=== PATIENT | female | born 1990 | race Caucasian/White ===

== ENCOUNTER 2018-04-04 16:36 | Emergency (ER) | payer MEDICAID, SELFPAY ==
[2018-04-04 17:11] VITALS: BP 110/70; PULSE 77; RESP 16; TEMP 36.6; O2SAT 98
--- NOTE | 2018-04-04 17:23 | DI.RPTCT_ITS ---
SYMPTOM/DIAGNOSIS: RIGHT RIBS HYPERESTHESIAS OVER 7TH RIB REGION. MIDLINE T SPINE CT CHEST: Noncontrast examination was performed. Lack of IV contrast does limit evaluation of the examination. Heart size is within normal limits. No significant pericardial effusion is seen. No significant mediastinal hilar or axillary adenopathy is seen on this noncontrast examination. The thoracic aorta is of normal caliber. No pleural effusion or pneumothorax is identified. The tracheal bronchial tree is unremarkable. No effusions are seen. There is a nonspecific 3 mm noncalcified pulmonary nodule in the superior aspect of the right middle lobe. No other pulmonary nodules are identified. No acute fractures or dislocations are seen. The nodule is unchanged compared to the CT scan of the chest from 03/24/17. There is an old L-1 compression fracture deformity. This is unchanged compared to prior examinations. No acute bone or joint abnormality is identified. IMPRESSION: No acute abnormality in the chest.
--- NOTE | 2018-04-04 17:23 | DI.RPTCT_ITS ---
SYMPTOM/DIAGNOSIS: RIGHT RIBS HYPERESTHESIAS OVER 7TH RIB REGION. MIDLINE T- SPINE CT THORACIC SPINE: CT scan of the thoracic spine was performed from reconstructions from the CT scan of the chest performed the same day. There is normal alignment of the thoracic spine. No acute fractures or subluxations are seen. There is an old L-1 compression fracture deformity. The paraspinal lines are intact. The bones are normally mineralized. IMPRESSION: No acute abnormality.
[2018-04-04] MEDS: Gabapentin 300 MG CAP PO (17:49)
[2018-04-04] MEDS: Lidocaine 5% Patch 1 PATCH TP (17:49)
--- NOTE | 2018-04-04 18:26 | DI.VRAD_ITS ---
EXAM: CT Chest Without Intravenous Contrast CLINICAL HISTORY: 27 years old, female; Pain; Chest wall pain; Patient HX: Rt ribs hyperesthesias over seventh rib region, midline tspine pain; Additional info: Tspine recons done seperately TECHNIQUE: Axial computed tomography images of the chest without intravenous contrast. Coronal and sagittal reformatted images were created and reviewed. COMPARISON: CT - CHEST FOR PULMONARY EMBOLUS 2018-03-13 17:14 FINDINGS: No focal pulmonary consolidation. No pleural effusion. Mediastinum is unremarkable. Old appearing mild anterior compression of the L1 vertebral body. No evidence of acute fracture. No definite focal disc protrusion or herniation. IMPRESSION: No specific etiology identified for the patient's symptoms. Dictated and Authenticated by: Robert Ames MD. Ordering:SULEIMAN BALLARD MD
--- NOTE | 2018-04-04 18:28 | DI.VRAD_ITS ---
EXAM: CT Thoracic Spine Without Intravenous Contrast CLINICAL HISTORY: 27 years old, female; Pain; Pain in thoracic spine; Patient HX: Right ribs hyperesthesias over 7th rib region, midline tspine pain over t7; Additional info: Per pt: Midline tspine pain radiating around right side up sternum TECHNIQUE: Axial computed tomography images of the thoracic spine without intravenous contrast. Coronal and sagittal reformatted images were created and reviewed. COMPARISON: CT - TSPINE AND L SPINE WO 2017-03-24 13:32 FINDINGS: Bony structures appear intact. No focal subluxation. Paraspinal soft tissues unremarkable. No definite focal disc protrusion or herniation. Old-appearing mild compression of the T1 vertebral body. No evidence of acute fracture. IMPRESSION: No specific etiology identified for the patient's symptoms. Dictated and Authenticated by: Robert Ames MD. Ordering:SULEIMAN BALLARD MD
--- NOTE | 2018-04-04 18:44 | ED.GENADUL ---
Disposition Clinical Impression: Rib pain on right side, Reflex sympathetic dystrophy Disposition: HOME Condition: Fair Instructions: Complex Regional Pain Syndrome (GEN) Additional Instructions: Please apply the medication as directed. Please follow-up with your primary care provider as soon as possible for reassessment, physical therapy, and potential pain management. If you notice any worsening of your symptoms, or any new symptoms such as vomiting, diarrhea, fever, chills, shortness of breath, chest pain, numbness, weakness, or fainting , please return immediately to the emergency department for reevaluation. Please follow up with your primary care provider as soon as possible for reassessment and reevaluation. As always, it was a pleasure participating in your medical care today. Prescriptions: Acetaminophen [Tylenol Extra Strength] 1,000 mg PO Q6H 5 Days #60 tab Capsaicin 0.075% [Zostrix HP 0.075% Cream] 60 gm TP TID #1 tube DiphenhydrAMINE [Benadryl] 50 mg PO PRN PRN #15 cap PRN Reason: Gabapentin 300 mg PO TID #90 capsule HYDROcodone 10 mg/APAP 325 mg [[place]field 10/325] 1 tab PO Q6H #10 tab Ibuprofen [Motrin Ib] 600 mg PO Q6H 5 Days #60 tablet Referrals: Griselda Campos DO [Primary Care Provider] - Medical Decision Making - Medical Decision Making This is a 27-year-old female who presents with left rib pain for the last week after being kneed in the left posterior ribs by her child. Chest x-ray was performed a week ago which was negative. The patient presents today with severe pain which she describes as burning like in sensation. No evidence of shingles, rash or abnormality on her skin. No signs of trauma there. Because of the patient's notable pain we did get a CT scan to evaluate for any subtle rib fractures, or spinal pathology. CT scans as reported by virtual radiology does show evidence of an old appearing mild compression fracture of the T1 vertebral body as well as an old mild anterior compression of the L1 vertebral body. Neither of which are located near her pain. Her pain on exam is concerning for reflex sympathetic dystrophy with her hyperesthesias, and burning sensation. With no evidence of shingles or other signs of rash or abnormality I feel that RSD is certainly a high likelihood. Patient was given a Lidoderm patch which gave no improvement of her symptoms. She was given oral gabapentin but obviously this is long-acting will not immediately resolve her symptoms. I had a long discussion with her regarding follow-up, the need for physical therapy, and potential pain clinic management as referred to by her PCP. We will prescribe caspacin cream, gabapentin. Patient did request a sleeping aid and I did recommend 50 mg of Benadryl nightly. Patient requested something additional for the pain, had a long discussion with her regarding the risks and benefits of opiates. Patient does appear to be in notable pain, and these hyperesthesias are concerning for RSD. After a long discussion of the risks of narcotics, as through shared decision making process we did agree for a short dose of narcotics, only to be used on a as needed basis for severe pain to be able to sleep. I discussed with her the hospital policy of no prolonged narcotic prescriptions the patient understands. Discussed the importance of close follow-up, and red flags which to return the patient understands. I have extensively reviewed the treatment plan and discharge instructions with the patient. I have addressed all patient concerns at this time. The patient was made aware of what symptoms to monitor for that would warrant a return to the emergency department. Discussed the plan with the patient, they demonstrate verbal understanding and agreement with our assessment and plan at this time. History of Present Illness - General Chief complaint: Nk/Back Pain Stated complaint: RIB PAIN Time Seen by Provider: 04/04/18 17:10 - History of Present Illness Initial comments: This is a 27-year-old female with a past medical history of a thoracic and lumbar spinal fracture after jumping off a roof in the distant past, who presents today for evaluation of right-sided back and rib pain. Patient was here within the past week for the same symptom. Patient states at that time that her child dropped with their knees onto the patient's back in the posterior rib region. She was seen and assessed here, had negative x-ray, and was discharged home with Tylenol, Motrin, and methocarbamol. Patient states that none of these medications have helped, and that her pain has become worse. She describes the pain as a burning searing sensation traveling from her back rib in the region of the sixth rib, traveling around her chest under her breast into the sternum. There is no exertional component. It is made worse by touch, pressure, and even the feeling of her clothes rubbing against it. She has not been able to sleep well because of this. She denies any relieving factors. She denies any cough, shortness of breath, hemoptysis. Denies PE risk factors such as recent long car rides, immobilization, recent surgery, prior history of DVT or PE, family history of PE or DVT, morbid obesity, exogenous estrogen and smoking, hemoptysis, history of cancer. She denies any focal upper or lower back pain. Past medical history is significant for asthma, and tubal ligation. She denies any current IV or illicit drug use. She denies any pertinent family history. She has no other complaints at this time. - Related Data Propranolol HCl 10 mg PO BID, PRN Anxiety/Mendez #30 tab-cap 11/11/17 Albuterol Sulfate [Proair Hfa] 1 puff IH Q6H PRN #1 inhaler 12/31/17 Ibuprofen 600 mg PO TID #30 tab-cap 12/31/17 Albuterol Sulfate [Proair Hfa] 1 puff IH Q4H PRN #1 inhaler 03/12/18 Bupropion HCl [Wellbutrin Sr] 100 mg PO BID #60 tab-cap 03/12/18 Fluticasone Propionate [Flovent Diskus] 100 mcg IH BID 30 Days #1 disk 03/12/18 Methocarbamol 750 mg PO Q6H PRN PRN #14 tablet 03/30/18 Hydrocodone/Acetaminophen [Vicodin 5-300 mg Tablet] 1 tab-cap PO Q6H PRN #15 tab-cap 04/02/18 Oxycodone HCl/Acetaminophen [Percocet 5-325 mg Tablet] 1 each PO q6 hours prn pain #15 tablet 04/02/18 Acetaminophen [Tylenol Extra Strength] 1,000 mg PO Q6H 5 Days #60 tab 04/04/18 Capsaicin 0.075% [Zostrix HP 0.075% Cream] 60 gm TP TID #1 tube 04/04/18 DiphenhydrAMINE [Benadryl] 50 mg PO PRN PRN #15 cap 04/04/18 Gabapentin 300 mg PO TID #90 capsule 04/04/18 HYDROcodone 10 mg/APAP 325 mg [[place] 10/325] 1 tab PO Q6H #10 tab 04/04/18 Ibuprofen [Motrin Ib] 600 mg PO Q6H 5 Days #60 tablet 04/04/18 Allergies Allergy/AdvReac Type Severity Reaction Status Date / Time No Known Drug Allergies Allergy Unverified 04/04/18 17:15 Review of Systems Other: 10 point review of systems was performed, pertinent positives and negatives are noted in the history of present illness. Past Medical History - Past Medical History Medical history: asthma, GERD Epigastric pain, kidney stones Surgical history: bilateral tubal ligation - Social History Alcohol use: none Drug use: none General Exam - Other Other exam information: 1.Const: Well-nourished, Well-developed, appearing stated age 2.Eyes: PERRL, no conjunctival injection, and symmetrical lids. 3.ENT: Atraumatic external nose and ears. Moist MM. Neck: Symmetric, trachea midline, No thyromegaly. 4.CVS: +S1/S2, No murmurs or gallops. Peripheral pulses 2+ and equal in all extremities. Brisk capillary refill in all extremities. 5.RESP: Unlabored respiratory effort. Clear to auscultation bilaterally. No wheezes rales or rhonchi 6.GI: Soft, Nontender/Nondistended, No hepatosplenomegaly. No guarding or rebound. 7.MSK: Normocephalic/Atraumatic, Extremities w/o deformity or ttp No cyanosis or clubbing, Normal movement of all extremities. No significant midline cervical or lumbar spine tenderness. She has minimal pinpoint midline tenderness over T6, and right paraspinal tenderness. No step-off. No other midline tenderness. Palpation of the skin around this area demonstrates no deformity, bruising, or signs of trauma. The patient has hyperesthesias in these areas, and is extremely tender even to the lightest of touch. Touching with a gloved finger with even the smallest amount of pressure elicits severe pain in response. 8.Skin: Warm, Dry. No rashes or lesions. 9.Neuro: instructor decorating II-XII grossly intact. Sensation grossly intact, no focal neurologic deficits. 10.Psych: (AAO) x3. Appropriate mood and affect Course Vital Signs - 24 hr 04/04/18 17:11 Temperature 36.6 C Pulse 77 Respiratory 16 Rate Blood Pressure 110/70 Pulse Oximetry 98
[2018-04-04 19:17] VITALS: BP 99/59; PULSE 65; RESP 20; O2SAT 100
== END 2018-04-04 19:18 | disposition home or self-care (01) ==
PROVIDERS: Emergency Provider Student in an Organized Health Care Education/Training Program; PCP Student in an Organized Health Care Education/Training Program
DX: R07.81 Pleurodynia (principal); G90.59 Complex regional pain syndrome I of other specified site; W50.0XXA Accidental hit or strike by another person, initial encounter; R20.8 Other disturbances of skin sensation
CPT/HCPCS: 71250; 99284

== ENCOUNTER → 2018-04-08 18:33 | Outpatient (REF) | payer MEDICAID, SELFPAY ==
[2018-04-13 13:51] LABS: Codeine Negative ng/mL (Cutoff: 25); Dihydrocodeine Negative ng/mL (Cutoff: 25); Hydrocodone Negative ng/mL (Cutoff: 25); Hydromorphone Negative ng/mL (Cutoff: 25); Morphine Negative ng/mL (Cutoff: 25); Naloxone Negative ng/mL (Cutoff: 25); Norhydrocodone Negative ng/mL (Cutoff: 25); Noroxycodone 28 ng/mL (Cutoff: 25); Opiates Interpretation Positive.
== END ==
LOC: LBN 18:33
PROVIDERS: PCP Student in an Organized Health Care Education/Training Program; Visit Provider Nurse Practitioner Family
DX: R82.5 Elevated urine levels of drugs, medicaments and biological substances (principal)
CPT/HCPCS: 80361

== ENCOUNTER → 2018-04-15 07:59 | Outpatient (CLI) | payer MEDICAID, SELFPAY ==
[2018-04-16 11:30] LABS: Lyme Ab w Rflx to Lyme Confirm Positive
[2018-04-17 01:12] LABS: Anaplasma phagocytophilum Negative (Negative); B. miyamotoi PCR Negative (Negative); Babesia divergens/MO-1 Negative (Negative); Babesia duncani Negative (Negative); Babesia microti Negative (Negative); Ehrlichia chaffeensis Negative (Negative); Ehrlichia ewingii/canis Negative (Negative); Ehrlichia muris eauclairensis Negative (Negative)
[2018-04-20 14:49] LABS: IgG Band(s) SEE COMMENTS kDa; IgG Western Blot Positive (Negative); IgM Western Blot Positive (Negative); Western Blot Interpretation SEE COMMENTS
== END ==
PROVIDERS: PCP Student in an Organized Health Care Education/Training Program; Visit Provider Student in an Organized Health Care Education/Training Program
DX: W57.XXXS Bitten or stung by nonvenomous insect and other nonvenomous arthropods, sequela (principal); T14.8XXA Other injury of unspecified body region, initial encounter
CPT/HCPCS: 36415; 86617; 86618; 87798

== ENCOUNTER 2018-05-13 09:19 | Emergency (ER) | payer MEDICAID, SELFPAY ==
[2018-05-13 09:29] VITALS: BP 104/59; PULSE 92; RESP 14; TEMP 37.3; O2SAT 98
--- NOTE | 2018-05-13 10:50 | DI.US_ITS ---
SYMPTOMS/DIAGNOSIS: RT ARM AXILLARY SWELLING SOFT TISSUE ULTRASOUND: Sonographic evaluation of the right axilla was performed. There is a 5 x 2.2 x 3.9 cm complex fluid collection in the subcutaneous tissues of the right axilla corresponding to the palpable abnormality. Posterior acoustic enhancement is seen. No internal blood flow is present. IMPRESSION: 5 cm complex fluid collection in the right axilla. Differential considerations include abscess, resolving hematoma or seroma. Necrotic lymph node or other mass can not be excluded. Follow up as clinically appropriate. This may include an aspiration. The findings were discussed with the emergency department on the date of the examination.
--- NOTE | 2018-05-13 10:52 | W.ED.GENAD ---
Discharge Plan Disposition Patient Disposition: HOME Condition: Stable Discharge Details Chief Complaint: Cellulitis Clinical Impression: Axillary hidradenitis suppurativa Primary Care Provider: Griselda Campos ED Provider: Duc Harmon Home Meds and New Rx's Prescriptions: New acetaminophen-codeine [Tylenol-Codeine #3] 300-30 mg tablet 1 tab PO Q6H PRN (Reason: pain) Qty: 4 RF: 0 Continue propranolol 10 MG tablet 10 mg PO BID, PRN Anxiety/Mendez Qty: 30 RF: 1 albuterol sulfate [ProAir HFA] 8.5 GM HFA aerosol inhaler 1 puff Inhalation Q4H PRN Qty: 1 RF: 1 fluticasone [Flovent Diskus] 100 MCG blister with device 100 mcg Inhalation BID 30 Days Qty: 1 RF: 3 pregabalin [Lyrica] 75 MG capsule 75 mg PO BID Qty: 60 RF: 5 doxycycline monohydrate 100 MG capsule 100 mg PO BID Qty: 42 RF: 0 bupropion HCl [Wellbutrin SR] 100 mg tablet extended release 12 hr 100 mg PO BID Qty: 60 RF: 3 acetaminophen [Mapap Extra Strength] 500 MG tablet 1,000 mg PO Q6H 5 Days Qty: 60 RF: 0 Discharge Instructions Instructions: Arm Pain (ED) Additional Instructions: Return immediately to the emergency department if you have any significant worsening of her symptoms, fever, or further concerns. Otherwise it is important that you follow-up with general surgery on Thursday for reassessment and scheduled treatment. Continue to take your prescribed medications by your primary care provider Referrals: Zeke Grimaldo DO [ [facility] STAFF PHYSICIAN] - 05/17/18 11:30 am Discharge Data Discharge Date/Time-TO BE ENTERED AT DEPARTURE: 05/13/18 14:09 Medical Decision Making MDM Narrative Medical decision making narrative: Patient presenting to the emergency department for chief complaint of right axillary swelling for 1 month. Patient just saw her primary care provider yesterday who was concerned for hidradenitis suppurativa that may be affecting the axillary nerve due to burning pain and discomfort radiating down arm and difficulty moving arm that seems mostly due to pain and discomfort. Physical exam reveals approximately 3 cm diameter swollen fluctuant area underneath the right axilla with only very mild erythema, no warmth, no induration. I agree with primary care is concerned and patient given [place] and ordered ultrasound imaging. I did speak with primary care provider who agrees with this plan of care and recommendation for general surgery f/u Review of ultrasound imaging shows a complex fluid collection underneath the right axilla. Did speak with Dr. Camacho in regards to concern of hidradenitis and she recommended that patient use NSAIDs and follow-up with the office on Thursday to see Dr. Santana as she does not typically operate on these. Patient did have Voltaren gel called in by her primary care provider and I did discuss with her limited supply of narcotics due to significant pain and just use for breakthrough pain or to aid in sleep. Patient to return for new or worsening symptoms or if she runs a measured fever which she was encouraged to check her temperature or return for any significant concern. After discussion of diagnosis and plan of care with patient she agrees and states no further needs questions or concern Medical Records Medical records reviewed: Yes I reviewed the patient's medical records. HPI - General Adult General Mode of arrival: ambulatory. Date/Time Provider Initiated Documentation: 05/13/18 09:45. Limitations to Documentation: no limitations. Information obtained by: patient, RN notes reviewed and old records reviewed. History of Present Illness 27 year old F presents to the emergency department with the chief complaint of Left armpit pain and swelling, described as moderate, with intensity rated at 8. Quality is described as burning and sharp, and is localized to the upper extremity. Patient distal. Patient started experiencing this month(s) (1 month) and it has been constant. No relieving factors improve symptom(s), No exacerbating factors reported . Patient did receive the following treatments prior to arrival, none Related Data Previous Rx's Medication Instructions Recorded propranolol 10 mg PO BID, PRN Anxiety/Mendez #30 11/11/17 tab-cap albuterol sulfate [ProAir HFA] 1 puff INHALATION Q4H PRN #1 03/12/18 inhaler fluticasone [Flovent Diskus] 100 mcg INHALATION BID 30 Days #1 03/12/18 disk acetaminophen [Mapap Extra 1,000 mg PO Q6H 5 Days #60 tab 04/04/18 Strength] pregabalin [Lyrica] 75 mg PO BID #60 tab-cap 04/14/18 doxycycline monohydrate 100 mg PO BID #42 tab-cap 04/21/18 bupropion HCl SR 100 mg tablet,12 100 mg PO BID #60 tab-cap 05/10/18 hr sustained-release acetaminophen-codeine 1 tab PO Q6H PRN #4 tab 05/13/18 [Tylenol-Codeine #3] Allergies Allergy/AdvReac Type Severity Reaction Status Date / Time No Known Drug Allergies Allergy Unverified 05/13/18 10:25 General Stated Complaint: Cellulitis VIADL: 3 Review of Systems Constitutional Denies body ache(s), Reports chills, Reports fever(s), Denies lethargy, Denies night sweats and Denies weight loss Cardiovascular Denies chest pain and Denies dyspnea Respiratory Denies cough and Denies dyspnea Gastrointestinal Denies abdominal pain, Denies nausea and Denies vomiting Musculoskeletal Reports myalgias (left arm) Integumentary/Breasts Reports as per HPI and Denies rash Neurologic Denies confusion and Denies sensory deficit Psychiatric Denies confusion PFSH Family History Other Diabetes Medical History Anxiety Bacterial vaginosis Contraception Depression Heartburn Other social stressor Social History Smoking/Tobacco Use Status: Current every day Surgical History Ligation of fallopian tube (10/08/16) Tympanostomy Tubes (09/27/02) fx L1 vertebra Exam Const General: cooperative, no acute distress and not ill appearing Orientation: alert, awake and oriented x3 HENMN Mouth: moist mucous membranes Neck Neck: normal visual inspection and no lymphadenopathy Resp Effort & Inspection: normal respiratory effort, able to speak in complete sentences and no respiratory distress Cardio Rate: regular rate Rhythm: regular rhythm Skin General skin exam: no rashes or lesions noted Neuro General: alert, awake, oriented x3, moves all extremities and no focal motor deficits Sensory Exam: no sensory deficits noted Extrem Right upper extremity: normal capillary refill, shoulder/upper arm Details: axillary nerve sensory function normal and other (Patient has non-erythematous swelling to right axilla. There is significant tenderness with diameter of swelling approximately 3 cm.); no penetrating wound and no unusual warmth and hand Details: normal to inspection, normal capillary refill, neuromotor exam normal and neurosensory exam normal Course Vital Signs Temperature 37.3 C 05/13/18 09:29 Pulse 92 H 05/13/18 09:29 Respiratory Rate 14 05/13/18 09:29 Blood Pressure 104/59 L 05/13/18 09:29 Pulse Oximetry 98 05/13/18 09:29 Temperature 37.3 C 05/13/18 09:29 Pulse 92 H 05/13/18 09:29 Respiratory Rate 14 05/13/18 09:29 Blood Pressure 104/59 L 05/13/18 09:29 Pulse Oximetry 98 05/13/18 09:29
--- NOTE | 2018-05-13 10:58 | ED.GENADUL_ITS ---
Discharge Plan Disposition Patient Disposition: HOME Condition: Stable Discharge Details Chief Complaint: Cellulitis Clinical Impression: Axillary hidradenitis suppurativa Primary Care Provider: Griselda Campos ED Provider: Duc Harmon Home Meds and New Rx's Prescriptions: New acetaminophen-codeine [Tylenol-Codeine #3] 300-30 mg tablet 1 tab PO Q6H PRN (Reason: pain) Qty: 4 RF: 0 Continue propranolol 10 MG tablet 10 mg PO BID, PRN Anxiety/Mendez Qty: 30 RF: 1 albuterol sulfate [ProAir HFA] 8.5 GM HFA aerosol inhaler 1 puff Inhalation Q4H PRN Qty: 1 RF: 1 fluticasone [Flovent Diskus] 100 MCG blister with device 100 mcg Inhalation BID 30 Days Qty: 1 RF: 3 pregabalin [Lyrica] 75 MG capsule 75 mg PO BID Qty: 60 RF: 5 doxycycline monohydrate 100 MG capsule 100 mg PO BID Qty: 42 RF: 0 bupropion HCl [Wellbutrin SR] 100 mg tablet extended release 12 hr 100 mg PO BID Qty: 60 RF: 3 acetaminophen [Mapap Extra Strength] 500 MG tablet 1,000 mg PO Q6H 5 Days Qty: 60 RF: 0 Discharge Instructions Instructions: Arm Pain (ED) Additional Instructions: Return immediately to the emergency department if you have any significant worsening of her symptoms, fever, or further concerns. Otherwise it is important that you follow-up with general surgery on Thursday for reassessment and scheduled treatment. Continue to take your prescribed medications by your primary care provider Referrals: Zeke Grimaldo DO [ [facility] STAFF PHYSICIAN] - 05/17/18 11:30 am Discharge Data Discharge Date/Time-TO BE ENTERED AT DEPARTURE: 05/13/18 14:09 Medical Decision Making MDM Narrative Medical decision making narrative: Patient presenting to the emergency department for chief complaint of right axillary swelling for 1 month. Patient just saw her primary care provider yesterday who was concerned for hidradenitis suppurativa that may be affecting the axillary nerve due to burning pain and discomfort radiating down arm and difficulty moving arm that seems mostly due to pain and discomfort. Physical exam reveals approximately 3 cm diameter swollen fluctuant area underneath the right axilla with only very mild erythema , no warmth, no induration. I agree with primary care is concerned and patient given Rochert and ordered ultrasound imaging. I did speak with primary care provider who agrees with this plan of care and recommendation for general surgery f/u Review of ultrasound imaging shows a complex fluid collection underneath the right axilla. Did speak with Dr. Camacho in regards to concern of hidradenitis and she recommended that patient use NSAIDs and follow-up with the office on Thursday to see Dr. Santana as she does not typically operate on these. Patient did have Voltaren gel called in by her primary care provider and I did discuss with her limited supply of narcotics due to significant pain and just use for breakthrough pain or to aid in sleep. Patient to return for new or worsening symptoms or if she runs a measured fever which she was encouraged to check her temperature or return for any significant concern. After discussion of diagnosis and plan of care with patient she agrees and states no further needs questions or concern Medical Records Medical records reviewed: Yes I reviewed the patient's medical records. HPI - General Adult General Mode of arrival: ambulatory . Date/Time Provider Initiated Documentation: 05/13/18 09:45 . Limitations to Documentation: no limitations . Information obtained by: patient, RN notes reviewed and old records reviewed . History of Present Illness 27 year old F presents to the emergency department with the chief complaint of Left armpit pain and swelling, described as moderate, with intensity rated at 8. Quality is described as burning and sharp, and is localized to the upper extremity. Patient distal. Patient started experiencing this month(s) (1 month) and it has been constant. No relieving factors improve symptom(s) , No exacerbating factors reported . Patient did receive the following treatments prior to arrival, none Related Data Previous Rx's Medication Instructions Recorded propranolol 10 mg PO BID, PRN Anxiety/Mendez #30 11/11/17 tab-cap albuterol sulfate [ProAir HFA] 1 puff INHALATION Q4H PRN #1 03/12/18 inhaler fluticasone [Flovent Diskus] 100 mcg INHALATION BID 30 Days #1 03/12/18 disk acetaminophen [Mapap Extra 1,000 mg PO Q6H 5 Days #60 tab 04/04/18 Strength] pregabalin [Lyrica] 75 mg PO BID #60 tab-cap 04/14/18 doxycycline monohydrate 100 mg PO BID #42 tab-cap 04/21/18 bupropion HCl SR 100 mg tablet,12 100 mg PO BID #60 tab-cap 05/10/18 hr sustained-release acetaminophen-codeine 1 tab PO Q6H PRN #4 tab 05/13/18 [Tylenol-Codeine #3] Allergies Allergy/AdvReac Type Severity Reaction Status Date / Time No Known Drug Allergies Allergy Unverified 05/13/18 10:25 General Stated Complaint: Cellulitis VIDAL: 3 Review of Systems Constitutional Denies body ache(s), Reports chills, Reports fever(s), Denies lethargy, Denies night sweats and Denies weight loss Cardiovascular Denies chest pain and Denies dyspnea Respiratory Denies cough and Denies dyspnea Gastrointestinal Denies abdominal pain, Denies nausea and Denies vomiting Musculoskeletal Reports myalgias (left arm) Integumentary/Breasts Reports as per HPI and Denies rash Neurologic Denies confusion and Denies sensory deficit Psychiatric Denies confusion PFSH Family History Other Diabetes Medical History Anxiety Bacterial vaginosis Contraception Depression Heartburn Other social stressor Social History Smoking/Tobacco Use Status: Current every day Surgical History Ligation of fallopian tube (10/08/16) Tympanostomy Tubes (09/27/02) fx L1 vertebra Exam Const General: cooperative, no acute distress and not ill appearing Orientation: alert, awake and oriented x3 HENPR Mouth: moist mucous membranes Neck Neck: normal visual inspection and no lymphadenopathy Resp Effort & Inspection: normal respiratory effort, able to speak in complete sentences and no respiratory distress Cardio Rate: regular rate Rhythm: regular rhythm Skin General skin exam: no rashes or lesions noted Neuro General: alert, awake, oriented x3, moves all extremities and no focal motor deficits Sensory Exam: no sensory deficits noted Extrem Right upper extremity: normal capillary refill, shoulder/upper arm Details: axillary nerve sensory function normal and other (Patient has non-erythematous swelling to right axilla. There is significant tenderness with diameter of swelling approximately 3 cm.); no penetrating wound and no unusual warmth and hand Details: normal to inspection, normal capillary refill, neuromotor exam normal and neurosensory exam normal Course Vital Signs Temperature 37.3 C 05/13/18 09:29 Pulse 92 H 05/13/18 09:29 Respiratory Rate 14 05/13/18 09:29 Blood Pressure 104/59 L 05/13/18 09:29 Pulse Oximetry 98 05/13/18 09:29 Temperature 37.3 C 05/13/18 09:29 Pulse 92 H 05/13/18 09:29 Respiratory Rate 14 05/13/18 09:29 Blood Pressure 104/59 L 05/13/18 09:29 Pulse Oximetry 98 05/13/18 09:29
[2018-05-13] MEDS: HYDROcodone 5/Acetaminophen 325 TAB PO (11:00)
== END 2018-05-13 14:09 | disposition home or self-care (01) ==
PROVIDERS: Emergency Provider Nurse Practitioner Family; PCP Student in an Organized Health Care Education/Training Program
DX: L73.2 Hidradenitis suppurativa (principal)
CPT/HCPCS: 76881; 99284

== ENCOUNTER 2018-05-19 10:13 | Day surgery (SDC) | payer MEDICAID, SELFPAY ==
[2018-05-19 10:27] VITALS: BP 104/61; PULSE 95; RESP 18; TEMP 35.8; O2SAT 96
[2018-05-19] MEDS: Lactated Ringers 1,000 ML 30 ML IV (10:56)
[2018-05-19] MEDS: Lidocaine 1% Pres-Free 5 ML VIAL 10 ML (12:48)
--- NOTE | 2018-05-19 13:12 | PDOC.DSDIS_ITS ---
Discharge Plan Disposition Patient Disposition: HOME Condition: Good Discharge Details Reason For Visit: ABSCESS Attending Provider: Zeke Grimaldo Primary Care Provider: Griselda Campos Home Meds and New Rx's Prescriptions: Continue propranolol 10 MG tablet 10 mg PO BID, PRN Anxiety/Mendez Qty: 30 RF: 1 albuterol sulfate [ProAir HFA] 8.5 GM HFA aerosol inhaler 1 puff Inhalation Q4H PRN Qty: 1 RF: 1 fluticasone [Flovent Diskus] 100 MCG blister with device 100 mcg Inhalation BID 30 Days Qty: 1 RF: 3 pregabalin [Lyrica] 75 MG capsule 75 mg PO BID Qty: 60 RF: 5 doxycycline monohydrate 100 MG capsule 100 mg PO BID Qty: 42 RF: 0 bupropion HCl [Wellbutrin SR] 100 mg tablet extended release 12 hr 100 mg PO BID Qty: 60 RF: 3 acetaminophen [Mapap Extra Strength] 500 MG tablet 1,000 mg PO Q6H PRNRF: 0 acetaminophen-codeine [Tylenol-Codeine #3] 300-30 mg tablet 1 tab PO Q6H PRN (Reason: pain) Qty: 4 RF: 0 Discharge Instructions Instructions: Acute Wound Care (DC), Wound Infection (DC) Additional Instructions: Remove guaze packing in 24 hours, keep wound covered, expect it to drain for up to a week. Avoid lifting arm above shoulder. Referrals: Zeke Grimaldo DO [ [facility] STAFF PHYSICIAN] - 05/26/18 9:45 am (Follow up after drainage of right axillary abscess) Activity:: Activity as Tolerated Remove Dressings/Wound Care:: 24 hours Shower/Bathe:: 48 hours and Cover Diet:: regular diet Discharge Orders Discharge Orders: Discharge Order (Routine); Ordered 05/19/18 Ordered By: Zeke Grimaldo DS: Diagnosis Discharge Diagnosis (1) Axillary abscess: Status: Acute Asessment and Plan: Axillary abscess incised and drained under monitored anesthesia care. Culture sent for identification and sensitivity.
--- NOTE | 2018-05-19 13:32 | W.PM.OP ---
Date of service: 05/19/18 Time of Service: 13:32 Operative Note DATE OF PROCEDURE: 05/19/18 PRE-OP DIAGNOSIS: Axillary abscess POST-OP DIAGNOSIS: same PROCEDURE: Incision and drainage of right axillary abscess SURGEON: Zeke Grimaldo FLORICULTURE PROFESSOR: Halina Neff ANESTHESIA: MAC (Anesthestist: Moy Valentin, LEO ASA 2 Mallampati II) and local (1% lidocaine, and 0.5% marcaine with epinephrine) ESTIMATED BLOOD LOSS: 0.5 PATHOLOGY: none sent COMPLICATIONS: None Patient was transported to: same day Patient's condition: stable Indications: 27 y/o female with abscess in right axilla. An ultrasound of the right axilla clearly shows a 5 cm x 3 cm x 4 cm non-homogenous fluid collection consistent with an abscess. Present for about a month, and make it difficult to raise her arm due to pain. Denies any drainage. She is taking doxycycline for Lyme disease currently. Due to her anxiety, it was recommended that she undergo incision and drainage of her right axillary abscess under anesthesia. The procedure is reviewed with her, and the risks discussed. All her questions were answered to her satisfaction. Findings: The right axillary fluid collection was first aspirated by 18-gauge needle with a 20 cc syringe. A full 20 cc of purulent fluid was drained, this was subsequently sent for culture and identification. Fluid collection was then formally incised, drained and copiously irrigated. Procedure Description: The patient was brought to the preanesthesia waiting area. Her identification was confirmed, consent signed, and site marking placed in the right axilla. She was then brought to the operating room, where she was positioned supine. All bony prominences were padded. Monitoring for telemetry, O2 saturation, blood pressure, and end-tidal CO2 were applied. An appropriate timeout was taken reviewing: The patient's identification, procedure, site, allergies, medications, and fire risk, was performed. Sedation was titrated for effect by the OUTBOUND SUPERVISOR, and once adequate sedation was reached. Her right axilla was prepped with ChloraPrep, and block draped in the standard sterile fashion Local was infiltrated over the center of the axillary lesion at its most fluctuant point. An 18-gauge needle was used to aspirate 20 cc of purulent fluid from the lesion. This fluid was sent off for culture. I then made a 2 cm linear transverse incision through the skin into the fluid cavity, with subsequent drainage of another 100 mils of purulent fluid. The wound was then copiously irrigated. I then packed the wound with 1 inch iodoform gauze strip for hemostasis. A dry sterile dressing was placed over the wound. There were no complications during the case. The patient tolerated procedure well. She was awakened in the operating room and brought to the day surgery recovery area in good condition. All counts reported as correct ?2.
[2018-05-19 13:45] VITALS: BP 97/50; PULSE 67; RESP 18; TEMP 35.8; O2SAT 96
[2018-05-19] MEDS: oxyCODONE 5 MG TAB PO (14:05)
== END 2018-05-19 14:40 | disposition home or self-care (01) ==
PROVIDERS: PCP Student in an Organized Health Care Education/Training Program; Visit Provider Surgery
PROC: (CPT 10061; principal; 2018-05-19 12:00)
DX: L02.411 Cutaneous abscess of right axilla (principal); B95.61 Methicillin susceptible Staphylococcus aureus infection as the cause of diseases classified elsewhere; K21.9 Gastro-esophageal reflux disease without esophagitis; Z16.29 Resistance to other single specified antibiotic
CPT/HCPCS: 10061; 87077; 87070; 87075; 87186; 87205; J1885; J2250; J2405; J3010

== ENCOUNTER 2018-06-28 01:05 | Outpatient (CLI) | payer MEDICAID, SELFPAY ==
--- NOTE | 2018-06-28 12:52 | DI.RAD_ITS ---
SYMPTOM/DIAGNOSIS: WORSENING SHOULDER PAIN, M79.602 LEFT SHOULDER: Five views. No bone or joint abnormality is identified. The soft tissues are unremarkable. IMPRESSION: Negative examination.
== END 2018-06-28 01:25 ==
PROVIDERS: PCP Student in an Organized Health Care Education/Training Program; Visit Provider Student in an Organized Health Care Education/Training Program
DX: M25.512 Pain in left shoulder (principal); M79.602 Pain in left arm
CPT/HCPCS: 73030

== ENCOUNTER 2018-08-04 14:09 | Outpatient (REF) | payer MEDICAID, SELFPAY | END 2018-08-04 14:29 | LOC: LBN 14:09 | PROVIDERS: PCP Student in an Organized Health Care Education/Training Program; Visit Provider Student in an Organized Health Care Education/Training Program | DX: N39.0 Urinary tract infection, site not specified (principal) | CPT/HCPCS: 87077; 87086; 87186 ==

== ENCOUNTER 2018-08-13 10:53 | Outpatient (CLI) | payer MEDICAID, SELFPAY ==
--- NOTE | 2018-08-13 10:36 | DI.RAD_ITS ---
SYMPTOM/DIAGNOSIS: ACUTE BRONCHOSPASM J98.01, COUGH R05 PA AND LATERAL CHEST: The cardiac and mediastinal contours have a normal appearance. The lungs are clear. No infiltrate or effusion is seen. IMPRESSION: Negative chest x-ray.
== END 2018-08-13 11:13 ==
PROVIDERS: PCP Student in an Organized Health Care Education/Training Program; Visit Provider Student in an Organized Health Care Education/Training Program
DX: J98.01 Acute bronchospasm (principal); R05 Cough
CPT/HCPCS: 71046

== ENCOUNTER 2018-11-10 12:59 | Outpatient (CLI) | payer MEDICAID, SELFPAY ==
[2018-11-10 13:30] LABS: HCT 37.6 % (36.0-46.0); HGB 12.6 g/dL (12.0-15.5)
== END 2018-11-10 13:19 ==
PROVIDERS: PCP Student in an Organized Health Care Education/Training Program; Visit Provider Student in an Organized Health Care Education/Training Program
DX: K58.2 Mixed irritable bowel syndrome (principal); R53.83 Other fatigue
CPT/HCPCS: 36415; 85014; 85018

== ENCOUNTER 2019-03-22 09:41 | Emergency (ER) | payer MEDICAID, SELFPAY ==
[2019-03-22 09:45] VITALS: BP 117/45; PULSE 70; RESP 20; TEMP 36.8; O2SAT 100
[2019-03-22 10:46] LABS: Abs Immature Grans 0.01 k/cumm (0.0-0.09); Absolute Basophil Count 0.04 k/cumm (0.0-0.2); Absolute Eosinophil Count 0.15 k/cumm (0.0-0.7); Absolute Lymphocyte Count 2.17 k/cumm (1.2-3.4); Absolute Monocyte Count 0.33 k/cumm (0.11-0.7); Absolute Neutrophil Count 3.05 k/cumm (1.2-6.7); Basophils % 0.7; Eosinophils % 2.6; HCT 44.4 % (36.0-46.0); Immature Grans % 0.2; Lymphocytes % 37.7; Mean Corp. HGB Concentration 33.8 g/dL (32.0-36.0); Mean Corpuscular Hemoglobin 31.6 pg (27.0-33.0); Mean Corpuscular Volume 93.7 fL (80-95); Mean Platelet Volume 10.9 fL (8.0-11.0); Monocytes % 5.7; Neutrophils % 53.1; Platelet Count 210 x1000/uL (130-400); RBC 4.74 m/cumm (4.00-5.20); RBC Distribution Width 13.1 % (11.7-14.6); White Blood Cell Count 5.75 k/cumm (4.4-10.8)
--- NOTE | 2019-03-22 10:47 | ED.GENADUL_ITS ---
Discharge Plan Disposition Patient Disposition: HOME Condition: Stable Discharge Details Chief Complaint: RashLesion Clinical Impression: Contact dermatitis Primary Care Provider: Griselda Campos ED Provider: Duc Harmon Home Meds and New Rx's Prescriptions: Continued clonazepam [Klonopin] 1 mg tablet 1 mg PO DAILY PRNRF: 0 albuterol sulfate [ProAir HFA] 90 mcg/actuation HFA aerosol inhaler 1 puff Inhalation Q4H PRN Qty: 1 RF: 1 Flovent Diskus 100 mcg/actuation blister with device 1 inh IH BID Qty: 1 RF: 0 dextroamphetamine-amphetamine [Adderall] 10 mg tablet 10 mg PO DAILY RF: 0 bupropion HCl [Wellbutrin XL] 150 mg tablet extended release 24 hr 150 mg PO QAM RF: 0 acetaminophen [Mapap Extra Strength] 500 MG tablet 1,000 mg PO Q6H PRNRF: 0 Discharge Instructions Instructions: Poison Cinthya (ED) Additional Instructions: You may continue to use [id number] therapies for concern of possible poison cinthya/contact dermatitis. Return to the emergency department immediately for any new or significant worsening of symptoms otherwise follow-up with your primary care provider and women's wellness for reassessment Referrals: [facility] [Provider Group] - 1 week (For reassessment of your abnormal vaginal bleeding) Griselda Campos DO [Primary Care Provider] - 1 week (For reassessment of your abnormal bruising) Discharge Data Discharge Date/Time-TO BE ENTERED AT DEPARTURE: 03/22/19 11:50 Medical Decision Making Patient presenting to the emergency department for chief complaint of rash and bruising. She states approximately 1 weeks ago she was having sex in the merchant with her significant other and thinks she may have gotten poison cinthya from this. The next day she noted an erythematous pruritic rash to her upper thighs. Patient then states she bruising all around the area of rash that is continued for the past week. She does state itching has slightly improved. Upon further questioning patient states abnormal menses with heavy bleeding and continued spotting, pain and bleeding with sex, and other abnormal bruising specifically to the lower extremities. Patient denies any fever chills, melena or hematochezia, states intermittent headaches. Physical exam shows excoriated erythematous blanchable rash to upper thighs with significant ecchymosis surrounding. Patient also has ecchymosis to lower contreras. Exam is otherwise unremarkable. Plan to check labs. Rashes consistent with contact dermatitis and does appear to be healing well and I do not feel needs any treatment at this time but more concerning is patient's abnormal bruising. Labs are reviewed and show completely normal CBC, no note of anemia, normal platelet count, no abnormalities noted. CMP shows no acute findings and specifically normal LFTs, again no findings noted of abnormality with PT PTT and INR. Given completely reassuring labs I feel the patient is able to be safely followed up on outpatient basis for what appears to be a contact dermatitis and possibly poison cinthya and secondary bruising due to pruritus. Referrals were placed to patient's primary care provider whom I feel that she needs to follow- up in 1 week for reassessment of her abnormal bruising and repeat labs. Given patient's complaint of pain and bleeding with sex I do feel that she needs to see women's wellness but otherwise at this point is asymptomatic so no exam was performed in the emergency department today. Return precautions discussed. After discussion of diagnosis and plan of care patient has no further needs, questions, or concerns and states clear understanding to return to the emergency department for any worsening symptoms. HPI General Mode of arrival: ambulatory . Date/Time Provider Initiated Documentation: 03/22/19 09:49 . Limitations to Documentation: no limitations . Information obtained by: patient . History of Present Illness 28 year old F presents to the emergency department with the chief complaint of rash and brusing to thighs , described as mild, Quality is described as other (denies pain, states itching), and is localized to the lower extremity. Patient started experiencing this week(s) (1) and it has been constant. No relieving factors improve symptom(s), Patient did receive the following treatments prior to arrival, none Related Data Home Medications Medication Instructions Recorded Confirmed acetaminophen [Mapap Extra 1,000 mg PO Q6H PRN 05/19/18 03/22/19 Strength] clonazepam 1 mg tablet 1 mg PO DAILY PRN tab 08/04/18 03/22/19 albuterol sulfate 90 mcg/actuation 1 puff INHALATION Q4H PRN #1 08/13/18 03/22/19 aerosol inhaler inhaler fluticasone propionate 100 1 inh IH BID #1 each 08/17/18 03/22/19 mcg/actuation blister powder for inhalation bupropion HCl 150 mg 24 hr tablet, 150 mg PO QAM 12/22/18 03/22/19 extended release dextroamphetamine-amphetamine 10 10 mg PO DAILY 12/22/18 03/22/19 mg tablet Previous Rx's Medication Instructions Recorded albuterol sulfate 90 mcg/actuation 1 puff INHALATION Q4H PRN #1 08/13/18 aerosol inhaler inhaler fluticasone propionate 100 1 inh IH BID #1 each 08/17/18 mcg/actuation blister powder for inhalation Allergies Allergy/AdvReac Type Severity Reaction Status Date / Time No Known Drug Allergies Allergy Verified 03/22/19 09:47 General Stated Complaint: RashLesion VIDAL: 3 Review of Systems Constitutional Denies chills, Denies fever(s), Reports headache(s) (intermittent) and Denies malaise ENT Reports headache(s) (intermittent) Cardiovascular Denies chest pain, Denies leg edema and Denies dyspnea Respiratory Denies dyspnea Genitourinary Reports abnormal menses, Reports abnormal vaginal bleeding and Reports dyspareunia Integumentary/Breasts Reports as per HPI, Reports rash and Reports unusual bruising Neurologic Reports headache(s) (intermittent) Hematologic/Lymphatic Reports easy bruising PFSH Medical History Acute bronchospasm (Acute) Anxiety Bacterial vaginosis Contraception Cough (Acute) Depression Heartburn Irritable bowel syndrome (Chronic) Other social stressor Pneumonia (Suspected) Sleep disorder (Acute 07/09/17) Smoker (Chronic 09/08/13) Surgical History fx L1 vertebra H/O excision of mass (Acute 05/19/18) Ligation of fallopian tube (10/08/16) Tympanostomy Tubes (09/27/02) Family History Other Diabetes Social History Smoking/Tobacco Use Status: Current every day Alcohol Intake: never Drug use: Current Sobriety Substance use type: does not use Adopted: No Household members: children What type of physical activity do you participate in: none Seatbelt use: never Drive intox or ride w/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 Working smoke detector in home: Yes Carbon monox detector in home: Yes Do you feel safe at home: Yes Do you feel safe in your relationship?: Yes Female Reproductive History Menstrual control method: permanent sterilization History History 5 Para Hx # Term Pregnancies 4 Multiple births Hx # Pregnancies Ectopic pregnancies AB induced Hx Number of Living Children AB spontaneous Exam Const General: cooperative, no acute distress and not ill appearing Orientation: alert, awake and oriented x3 HENMT Mouth: moist mucous membranes Resp Effort & Inspection: normal respiratory effort, able to speak in complete sentences and no respiratory distress Cardio Rate: regular rate Rhythm: regular rhythm Skin Rashes: rashes noted papules bilateral anterior upper leg surface blanching, erythematous and other (Noted excoriated); not indurated and other (Surrounding area of rash is significant ecchymosis); fluctuant not assessed and nontender Neuro General: alert, awake, oriented x3, moves all extremities and no focal motor deficits Course Vital Signs Temperature 36.8 C 03/22/19 09:45 Pulse 70 03/22/19 09:45 Respiratory Rate 20 03/22/19 09:45 Blood Pressure 117/45 L 03/22/19 09:45 Pulse Oximetry 100 03/22/19 09:45 Temperature 36.8 C 03/22/19 09:45 Temperature Source Temporal Artery Scan 03/22/19 09:45 Pulse 70 03/22/19 09:45 Respiratory Rate 20 03/22/19 09:45 Respiratory Effort Non-Labored 03/22/19 09:48 Blood Pressure 117/45 L 03/22/19 09:45 Blood Pressure Position Sitting 03/22/19 09:45 Pulse Oximetry 100 03/22/19 09:45 Oxygen Delivery Method Room Air 03/22/19 09:45 Oxygen Flow Rate 0 03/22/19 09:45 Pain Level 0 03/22/19 09:45 Lab/Test Results Lab/Test Results: Laboratory Tests Range/Units 03/22/19 10:35 WBC (4.4-10.8) k/cumm 5.75 RBC (4.00-5.20) m/cumm 4.74 Hgb (12.0-15.5) g/dL 15.0 Hct (36.0-46.0) % 44.4 MCV (80-95) fL 93.7 MCH (27.0-33.0) pg 31.6 MCHC (32.0-36.0) g/dL 33.8 RDW (11.7-14.6) % 13.1 Plt Count (130-400) x1000/uL 210 MPV (8.0-11.0) fL 10.9 Immature Gran % 0.2 Neutrophils % 53.1 Lymphocytes % 37.7 Monocytes % 5.7 Eosinophils % 2.6 Basophils % 0.7 Absolute Neutrophils (1.2-6.7) k/cumm 3.05 Absolute Lymphocytes (1.2-3.4) k/cumm 2.17 Absolute Monocytes (0.11-0.7) k/cumm 0.33 Absolute Eosinophils (0.0-0.7) k/cumm 0.15 Absolute Basophils (0.0-0.2) k/cumm 0.04
[2019-03-22 10:59] LABS: ALT 22 U/L (12-78); AST 18 U/L (15-37); Albumin 4.2 g/dL (3.4-5.0); Alkaline Phosphatase 68 U/L (46-116); Anion Gap 9.1 mmol/L (3-11); BUN 14 mg/dL (7-18); Bilirubin, Total 0.6 mg/dL (0.2-1.0); CO2 26.9 mmol/L (21.0-32.0); CREATININE 0.66 mg/dL (0.55-1.02); Chloride 103 mmol/L (98-107); Glucose 88 mg/dL (70-100); Potassium 4.2 mmol/L (3.5-5.1); Sodium 139 mmol/L (136-145); Total Protein 8.1 g/dL (6.4-8.2)
[2019-03-22 11:01] LABS: Prothrombin Time 9.6 sec (9.3-11.0)
--- NOTE | 2019-03-22 15:13 | NUR.NOTE ---
Nursing Note: Referrals faxed to [facility] and PCP ABBY Ocampo. Karen Peters.
== END 2019-03-22 11:50 | disposition home or self-care (01) ==
PROVIDERS: Emergency Provider Nurse Practitioner Family; PCP Student in an Organized Health Care Education/Training Program
DX: L50.9 Urticaria, unspecified (principal)
CPT/HCPCS: 36415; 80053; 99283; 85025; 85610; 85730; 99282

== ENCOUNTER 2019-03-24 13:40 | Outpatient (REF) | payer MEDICAID, SELFPAY ==
--- NOTE | 2019-03-24 11:30 | PAPFT_PTH ---
PATIENT: Rosa Rayo LOC: [facility] U#:[id number] AGE/SX: 28/F ROOM: RE03/24/[address]: Iris Clarke MD : 1990 BED: DIS: 03/24/2019 SPEC #: [id number] RECD: 03/24/19 17:35 STATUS: EILEEN RELiss #: [id number] [place]: 03/24/19 11:[address]: Iris Clarke DEPT: [facility] Cytology RECD BY: Camille Jackson ENTERED: 03/24/19 17:36 SP TYPE: PAPFT CLAUDIO DR: Griselda Campos, DO Tissues: 1 - CX/ENDOCX FOR PAP SMEARS Procedures: PAP THIN PREP/[facility] Screening Comments: [id number]
[2019-03-25 14:18] LABS: Chlamydia Result Negative; GC Result Negative
== END 2019-03-24 14:00 ==
LOC: LBN 13:40
PROVIDERS: PCP Student in an Organized Health Care Education/Training Program; Visit Provider Obstetrics & Gynecology
DX: Z12.4 Encounter for screening for malignant neoplasm of cervix (principal); N94.19 Other specified dyspareunia
CPT/HCPCS: 87491; 87591; 88142

== ENCOUNTER 2019-07-16 12:45 | Emergency (ER) | payer MEDICAID, SELFPAY ==
[2019-07-16 12:50] VITALS: BP 112/56; PULSE 94; RESP 16; TEMP 36.8; O2SAT 98
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
== END 2019-07-16 14:00 | disposition home or self-care (01) ==
PROVIDERS: Emergency Provider Physician Assistant; PCP Student in an Organized Health Care Education/Training Program
DX: J02.0 Streptococcal pharyngitis (principal); R23.8 Other skin changes
CPT/HCPCS: 87880; 99283

== ENCOUNTER 2019-08-31 16:07 | Emergency (ER) | payer MEDICAID, SELFPAY ==
[2019-08-31 16:36] VITALS: BP 116/60; PULSE 88; RESP 18; TEMP 36.8; O2SAT 100
--- NOTE | 2019-08-31 17:25 | ED.GENADUL_ITS ---
Discharge Plan Disposition Patient Disposition: HOME Condition: Good Discharge Details Chief Complaint: Sorethroat Clinical Impression: Well adult exam Primary Care Provider: Griselda Campos ED Provider: Tamy Soliz Home Meds and New Rx's Prescriptions: Continued clonazepam [Klonopin] 1 mg tablet 1 mg PO DAILY PRNRF: 0 albuterol sulfate [ProAir HFA] 90 mcg/actuation HFA aerosol inhaler 1 puff Inhalation Q4H PRN Qty: 1 RF: 1 dextroamphetamine-amphetamine [Adderall] 10 mg tablet 10 mg PO BID RF: 0 lamotrigine [Lamictal] 100 mg tablet 100 mg PO DAILY RF: 0 Vraylar 1.5 mg capsule 1.5 mg PO DAILY RF: 0 acetaminophen [Mapap Extra Strength] 500 MG tablet 1,000 mg PO Q6H PRNRF: 0 cephalexin [Keflex] 500 mg capsule 500 mg PO BID Qty: 20 RF: 0 Discharge Instructions Instructions: Normal Exam (ED) Additional Instructions: If you develop any sore throat, alternate Tylenol and Motrin for pain or fever. Drink plenty of fluids and get plenty of rest. Follow-up with your primary care doctor in 1 week as needed. Return to the emergency department with any worsening or new concerning symptoms. Discharge Data Discharge Date/Time-TO BE ENTERED AT DEPARTURE: 08/31/19 17:30 Discharge Physician: Tamy Soliz Medical Decision Making 29-year-old female presents for strep test as son has had sore throat for the past 3 days. She denies any symptoms at this time. She states she was only here for the strep test. Normal ENT exam. No signs of respiratory distress. Vitals within normal limits. She is afebrile and appears nontoxic. Strep test negative. I advised patient on the importance of fluids, rest, taking Tylenol and Motrin as needed for pain if develops, and follow-up with primary care doctor for reevaluation as needed. Medical Records Medical records reviewed: Yes I reviewed the patient's medical records. HPI General Mode of arrival: ambulatory . Date/Time Provider Initiated Documentation: 08/31/19 16:34 . Limitations to Documentation: no limitations . Information obtained by: patient . History of Present Illness 29 year old F presents to the emergency department with the chief complaint of No complaints, here for strep test as son has sore throat for 3 days, Related Data Home Medications Medication Instructions Recorded Confirmed acetaminophen [Mapap Extra 1,000 mg PO Q6H PRN 05/19/18 07/16/19 Strength] clonazepam 1 mg tablet 1 mg PO DAILY PRN tab 08/04/18 07/16/19 albuterol sulfate 90 mcg/actuation 1 puff INHALATION Q4H PRN #1 08/13/18 07/16/19 aerosol inhaler inhaler dextroamphetamine-amphetamine 10 10 mg PO BID tab 04/08/19 07/16/19 mg tablet cephalexin [Keflex] 500 mg PO BID #20 cap 07/16/19 cariprazine 1.5 mg capsule 1.5 mg PO DAILY 08/22/19 lamotrigine 100 mg tablet 100 mg PO DAILY 08/22/19 Previous Rx's Medication Instructions Recorded albuterol sulfate 90 mcg/actuation 1 puff INHALATION Q4H PRN #1 08/13/18 aerosol inhaler inhaler cephalexin [Keflex] 500 mg PO BID #20 cap 07/16/19 Allergies Allergy/AdvReac Type Severity Reaction Status Date / Time No Known Drug Allergies Allergy Verified 07/16/19 12:53 General Stated Complaint: Sorethroat VIDAL: 4 Review of Systems All systems reviewed & are unremarkable except as noted in HPI and below Constitutional Constitutional: Reports as per HPI, Denies chills and Denies fever(s) Eyes Eyes: Denies blurry vision ENT Ears, Nose, Mouth, and Throat: Denies dizziness, Denies sore throat and Denies throat swelling Cardiovascular Cardiovascular: Denies chest pain and Denies dyspnea Respiratory Respiratory: Denies cough and Denies dyspnea Gastrointestinal Gastrointestinal: Denies abdominal pain, Denies diarrhea and Denies vomiting Genitourinary Genitourinary: Denies hematuria and Denies dysuria Musculoskeletal Musculoskeletal: Denies back pain and Denies numbness Integumentary/Breasts Skin/Breast: Denies lesions and Denies rash Neurologic Neurologic: Denies dizziness, Denies focal weakness and Denies numbness Allergic/Immunologic Allergic/Immunologic: Denies throat swelling PFSH Family History (Updated 04/12/19 @ 15:29 by Franklyn Graham RN) Brother Substance abuse Other Diabetes Social History (Reviewed 07/18/19 @ 09:26 by OMAR Fraga Smoking/Tobacco Use Status: Current every day Tobacco: How many years used: 13 Alcohol Intake: never Drug use: Current Sobriety Substance use type: does not use Adopted: No Foster care: No Household members: children and other Details: Has custody of 2 of her 5 children Number of Children: 5 Communication Needs: None current occupation: Unemployed Sexually active: Yes What type of physical activity do you participate in: none Seatbelt use: never Drive intox or ride w/intox driver's license examiner: No Working smoke detector in home: Yes Carbon monox detector in home: Yes Do you feel safe at home: Yes Do you feel safe in your relationship?: Yes Additional Social history: 2010. at 41 weeks VINEET Pereira. 6 lb. KK 08/2012 TOP 2013 at term. Gail Wade. 6 lb 7oz. CNM 06/24/2019. Current BF: Cesar. He has 1 child by a previous relationship. 09/27/2015 at term. M. 7lb7oz. CNM 08/21/2016 at 37w. Diet/Di twins. Sean Espinal. Various points in her life her children have not been in her custody secondary to housing instability. She currently has custody of 2 of her children. The twins are not in her custody Female Reproductive History Menstrual control method: permanent sterilization History History 5 Para 4 Hx # Term Pregnancies 4 Multiple births Hx # Pregnancies Ectopic pregnancies AB induced 1 Hx Number of Living Children 5 AB spontaneous Exam Const General: cooperative, healthy appearing and no acute distress HENMT Head: normal to inspection Ears: hearing grossly normal bilaterally, external ears normal and TM's normal bilaterally General nose exam: external nose normal Face and sinus: normal facial exam Mouth: oral mucosae normal Throat: posterior oropharynx normal, uvula midline and no peritonsillar masses Eyes General: appearance normal, both eyes and all related structures Neck Neck: normal visual inspection, no lymphadenopathy, no meningeal signs, trachea midline and No submandibular swelling Resp Effort & Inspection: normal respiratory effort and able to speak in complete sentences Cardio Rate: regular rate Skin General skin exam: no rashes or lesions noted Neuro General: alert, awake and oriented x3 Motor: muscle tone normal throughout Extrem General: normal to inspection and full ROM Psych Appearance: grossly normal Affect: normal affect Course Vital Signs Vital signs: Vital Signs Temperature 98.2 F 08/31/19 16:36 Pulse 88 08/31/19 16:36 Respiratory Rate 18 08/31/19 16:36 Blood Pressure 116/60 08/31/19 16:36 Pulse Oximetry 100 08/31/19 16:36 Temperature 98.2 F 08/31/19 16:36 Temperature Source Skin 08/31/19 16:36 Pulse 88 08/31/19 16:36 Respiratory Rate 18 08/31/19 16:36 Respiratory Effort Non-Labored 08/31/19 16:38 Blood Pressure 116/60 08/31/19 16:36 Blood Pressure Position Sitting 08/31/19 16:36 Pulse Oximetry 100 08/31/19 16:36 Oxygen Delivery Method Room Air 08/31/19 16:36 Oxygen Flow Rate 0 08/31/19 16:36 Lab/Test Results Lab/Test Results: 08/31/19 17:10 Pharynx Streptococcus Screen (AN) - Pending
== END 2019-08-31 17:30 | disposition home or self-care (01) ==
PROVIDERS: Emergency Provider Physician Assistant; PCP Student in an Organized Health Care Education/Training Program
DX: J02.0 Streptococcal pharyngitis (principal)
CPT/HCPCS: 87880; 99282; 87081; 99283

== ENCOUNTER 2019-10-28 15:14 | Outpatient (CLI) | payer MEDICAID, SELFPAY ==
[2019-10-28 16:28] LABS: ALT 19 U/L (14-59); AST 13 U/L (15-37); Alkaline Phosphatase 69 U/L (46-116); Anion Gap 5.6 mmol/L (3-11); BUN 12 mg/dL (7-18); Bilirubin, Total 0.5 mg/dL (0.2-1.0); CO2 27.4 mmol/L (21.0-32.0); CREATININE 0.74 mg/dL (0.55-1.02); Calcium 9.2 mg/dL (8.5-10.1); Chloride 103 mmol/L (98-107); Glucose 93 mg/dL (74-106); Potassium 3.8 mmol/L (3.5-5.1); Sodium 136 mmol/L (136-145); Total Protein 7.7 g/dL (6.4-8.2)
[2019-10-28 16:29] LABS: Magnesium 1.7 mg/dL (1.8-2.4)
== END 2019-10-28 15:34 ==
PROVIDERS: PCP Student in an Organized Health Care Education/Training Program; Visit Provider Student in an Organized Health Care Education/Training Program
DX: K52.9 Noninfective gastroenteritis and colitis, unspecified (principal); E86.0 Dehydration
CPT/HCPCS: 36415; 80053; 83735

== ENCOUNTER 2020-06-08 12:18 | Outpatient (REF) | payer MEDICAID, SELFPAY ==
[2020-06-11 05:06] LABS: Patient Race White; SARS-CoV-2 RNA Undetected (Undetected); SARS-CoV-2 Specimen Source Nasopharynx
== END 2020-06-08 12:38 ==
LOC: LBN 12:18
PROVIDERS: PCP Student in an Organized Health Care Education/Training Program; Visit Provider Internal Medicine
DX: Z11.59 Encounter for screening for other viral diseases (principal)
CPT/HCPCS: U0003

== ENCOUNTER 2020-11-15 16:49 | Outpatient (REF) | payer MEDICAID, SELFPAY ==
[2020-11-19 15:48] LABS: Chlamydia Result Negative (Negative); GC Result Negative (Negative)
== END 2020-11-15 16:50 | disposition home or self-care (01) ==
LOC: LBN 16:49
PROVIDERS: PCP Student in an Organized Health Care Education/Training Program; Visit Provider Obstetrics & Gynecology Gynecology
DX: N93.9 Abnormal uterine and vaginal bleeding, unspecified (principal); R10.2 Pelvic and perineal pain; Z11.3 Encounter for screening for infections with a predominantly sexual mode of transmission
CPT/HCPCS: 87491; 87591; 87480; 87510; 87660

== ENCOUNTER 2021-01-10 15:52 | Outpatient (REF) | payer MEDICAID, SELFPAY | END 2021-01-10 15:53 | disposition home or self-care (01) | LOC: LBN 15:52 | PROVIDERS: PCP Student in an Organized Health Care Education/Training Program; Visit Provider Nurse Practitioner Family | DX: R10.2 Pelvic and perineal pain (principal); R30.0 Dysuria; R82.998 Other abnormal findings in urine | CPT/HCPCS: 87077; 87086; 87186 ==

== ENCOUNTER 2021-05-23 15:57 | Outpatient (REF) | payer MEDICAID, SELFPAY | END 2021-05-23 15:58 | disposition home or self-care (01) | LOC: LBN 15:57 | PROVIDERS: PCP Student in an Organized Health Care Education/Training Program; Visit Provider Student in an Organized Health Care Education/Training Program | DX: R10.2 Pelvic and perineal pain (principal); R35.0 Frequency of micturition; R82.998 Other abnormal findings in urine | CPT/HCPCS: 87077; 87086; 87186 ==

== ENCOUNTER 2021-07-16 09:19 | Outpatient (CLI) | payer MEDICAID, SELFPAY ==
[2021-07-16 12:12] LABS: Abs Immature Grans 0.01 10^3/uL (0.0-0.06); Absolute Basophil Count 0.08 10^3/uL (0.0-0.2); Absolute Eosinophil Count 0.19 10^3/uL (0.0-0.7); Absolute Lymphocyte Count 1.71 10^3/uL (1.2-3.4); Absolute Monocyte Count 0.37 10^3/uL (0.1-0.8); Absolute Neutrophil Count 3.67 10^3/uL (1.2-6.7); Basophils % 1.3; Eosinophils % 3.2; HCT 37.1 % (36.0-46.0); HGB 12.2 g/dL (11.2-15.7); Immature Grans % 0.2; Lymphocytes % 28.4; MCHC 32.9 % (32.0-36.0); MCV 97.4 fL (80-95); MPV 10.5 fL (8.0-11.0); Monocytes % 6.1; Neutrophils % 60.8; Nucleated RBC 0 %; Platelet Count 220 10^3/uL (130-400); RBC 3.81 10^6/uL (3.93-5.22); RDW 12.3 % (11.7-14.6); RDW-SD 44.6 fL; WBC 6.03 10^3/uL (4.4-10.8)
[2021-07-16 12:36] LABS: PTT Activated 24.3 sec (21.0-27.5); Prothrombin Time 10.1 sec (9.3-11.0)
[2021-07-16 13:21] LABS: ALT 30 U/L (14-59); AST 22 U/L (15-37); Alkaline Phosphatase 73 U/L (46-116); Anion Gap 8.3 mmol/L (3-11); BUN 12 mg/dL (7-18); Bilirubin, Direct 0.1 mg/dL (0.0-0.2); Bilirubin, Total 0.5 mg/dL (0.2-1.0); CO2 31.7 mmol/L (21.0-32.0); CREATININE 0.8 mg/dL (0.55-1.02); Chloride 105 mmol/L (98-107); Glucose 69 mg/dL (74-106); Potassium 3.8 mmol/L (3.5-5.1); Sodium 145 mmol/L (136-145); Total Protein 7.3 g/dL (6.4-8.2)
[2021-07-17 16:46] LABS: Hemoglobin A1C 4.9 % (<5.7)
[2021-07-18 01:02] LABS: Vitamin D 25 Total 19.8 ng/mL (30-100)
[2021-07-19 09:26] LABS: Hepatitis B Surface Ag Negative (Negative)
[2021-07-19 10:09] LABS: HIV-1/2 Ag & Ab Screen Negative (Negative)
== END 2021-07-16 09:20 | disposition home or self-care (01) ==
LOC: LBO 09:20
PROVIDERS: PCP Student in an Organized Health Care Education/Training Program; Visit Provider Student in an Organized Health Care Education/Training Program
DX: Z20.2 Contact with and (suspected) exposure to infections with a predominantly sexual mode of transmission; Z11.4 Encounter for screening for human immunodeficiency virus [HIV]; Z13.1 Encounter for screening for diabetes mellitus; Z86.32 Personal history of gestational diabetes
CPT/HCPCS: 36415; 80048; 80076; 82306; 87340; 87389; 83036; 85025; 85610; 85730

== ENCOUNTER 2021-09-10 09:24 | Emergency (ER) | payer MEDICAID, SELFPAY ==
[2021-09-10 09:28] VITALS: BP 120/74; PULSE 111; RESP 18; TEMP 37.5; O2SAT 97
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
[2021-09-10 09:50] LABS: Bilirubin Small (Negative); Blood Trace-intact (Negative); Clarity Sl Cloudy (Clear); Glucose Negative (Negative); Ketones 40 mg/dL (Negative); Leukocyte Esterase Negative (Negative); Nitrite Negative (Negative); Specific Gravity >= 1.030 (1.005-1.025); Urobilinogen 0.2 EU/dL (Up TO 0.2); pH 5.5 (5-8)
[2021-09-10] MEDS: Normal Saline 1,000 ML 1000 ML IV (09:52)
[2021-09-10 10:01] LABS: Bacteria Moderate HPF (Negative); C & S Indicated? No/Sq. Contamination; Casts Negative LPF (Negative); Crystals Negative HPF (Negative); Epithelial Cells Many HPF (Negative); Mucus Trace (Negative); WBC 0-2 HPF (0-5)
[2021-09-10 10:05] LABS: Abs Immature Grans 0.01 10^3/uL (0.0-0.06); Absolute Basophil Count 0.05 10^3/uL (0.0-0.2); Absolute Eosinophil Count 0.06 10^3/uL (0.0-0.7); Absolute Lymphocyte Count 0.83 10^3/uL (1.2-3.4); Absolute Monocyte Count 0.27 10^3/uL (0.1-0.8); Basophils % 0.8; HGB 13.9 g/dL (11.2-15.7); Immature Grans % 0.2; Lymphocytes % 13.3; MCH 31.6 pg (27.0-33.0); MCHC 33.9 % (32.0-36.0); MCV 93.2 fL (80-95); MPV 10.2 fL (8.0-11.0); Monocytes % 4.3; Neutrophils % 80.4; Nucleated RBC 0 %; Platelet Count 206 10^3/uL (130-400); RDW 11.9 % (11.7-14.6); RDW-SD 41.3 fL; WBC 6.22 10^3/uL (4.4-10.8)
[2021-09-10] MEDS: Metoclopramide 10 MG/2 ML VIAL IVP (10:17)
[2021-09-10] MEDS: diphenhydrAMINE 50 MG/ML VIAL 25 MG IVP (10:17)
[2021-09-10] MEDS: Ketorolac 30 MG/ML VIAL IVP (10:17)
--- NOTE | 2021-09-10 10:20 | NUR.NOTE ---
Nursing Note: Pt reports OLIVA 04/09, abd pain comes & goes, medicated as ordered, cont. to monitor.
[2021-09-10 10:29] LABS: ALT 21 U/L (14-59); AST 15 U/L (15-37); Albumin 4.5 g/dL (3.4-5.0); Alkaline Phosphatase 64 U/L (46-116); Anion Gap 11.5 mmol/L (3-11); BUN 18 mg/dL (7-18); Bilirubin, Total 0.8 mg/dL (0.2-1.0); CO2 26.5 mmol/L (21.0-32.0); Calcium 9.3 mg/dL (8.5-10.1); Chloride 102 mmol/L (98-107); Glucose 98 mg/dL (74-106); Potassium 3.2 mmol/L (3.5-5.1); Sodium 140 mmol/L (136-145); Total Protein 8.6 g/dL (6.4-8.2)
[2021-09-10 10:38] LABS: Lipase 45 U/L (73-393)
[2021-09-10] MEDS: Potassium Chloride 20 MEQ TABCR 40 MEQ PO (11:00)
[2021-09-10 11:02] VITALS: BP 110/60; PULSE 72; RESP 18; TEMP 36.1; O2SAT 98
== END 2021-09-10 11:06 | disposition home or self-care (01) ==
PROVIDERS: Emergency Provider Physician Assistant; PCP Student in an Organized Health Care Education/Training Program
DX: R10.9 Unspecified abdominal pain (principal); R19.7 Diarrhea, unspecified; R51.9 Headache, unspecified; E87.6 Hypokalemia
CPT/HCPCS: 36415; 80053; 81025; 83690; 96361; 96374; 96375; 99284; 81003; 81015; 85025; 99283; J1200; J1885; J2765

== ENCOUNTER 2022-05-22 11:05 | Outpatient (CLI) | payer MEDICAID, SELFPAY ==
[2022-05-22 11:27] LABS: Abs Immature Grans 0.01 10^3/uL (0.0-0.06); Absolute Basophil Count 0.06 10^3/uL (0.0-0.2); Absolute Eosinophil Count 0.27 10^3/uL (0.0-0.7); Absolute Lymphocyte Count 1.67 10^3/uL (1.2-3.4); Absolute Neutrophil Count 3.59 10^3/uL (1.2-6.7); Eosinophils % 4.5; HCT 38.4 % (36.0-46.0); HGB 12.8 g/dL (11.2-15.7); Immature Grans % 0.2; Lymphocytes % 27.8; MCH 31.4 pg (27.0-33.0); MCHC 33.3 % (32.0-36.0); MCV 94 fL (80-95); MPV 10.1 fL (8.0-11.0); Monocytes % 6.7; Neutrophils % 59.8; Platelet Count 243 10^3/uL (130-400); RBC 4.07 10^6/uL (3.93-5.22); RDW 13.1 % (11.7-14.6); RDW-SD 45.9 fL
[2022-05-22 12:14] LABS: Anion Gap 8.1 mmol/L (3-11); BUN 13 mg/dL (7-18); CO2 27.9 mmol/L (21.0-32.0); CREATININE 0.8 mg/dL (0.55-1.02); Calcium 8.6 mg/dL (8.5-10.1); Chloride 104 mmol/L (98-107); Estimated GFR 101.59 (mL/min/1.73m2); Ferritin 59 ng/mL (8-252); Glucose 88 mg/dL (74-106); Sodium 140 mmol/L (136-145); TSH (W/Ref FT4) 0.96 uIU/mL (0.36-3.74)
[2022-05-22 12:31] LABS: Iron 54 ug/dL (50-170); Total Iron Binding Capacity 313 ug/dL (250-450); Transferrin Sat 17 % (15-50)
[2022-05-23 09:23] LABS: Hepatitis C Ab w Rflx HCV PCR Negative (Negative)
[2022-05-23 09:32] LABS: Syphilis Serology (RPR) Negative (Negative)
[2022-05-23 09:46] LABS: HIV-1/2 Ag & Ab Screen Negative (Negative)
[2022-05-23 10:17] LABS: HSV Type 1 Ab, IgG Positive (Negative); HSV Type 2 Ab, IgG Negative (Negative); Hep A Total Ab w Rflx IgM Negative (Negative)
[2022-05-23 11:01] LABS: Hepatitis B Surface Ag Negative (Negative)
[2022-05-25 18:09] LABS: Magnesium 1.9 mg/dL (1.8-2.4)
[2022-05-26 06:04] LABS: Vitamin D 25 Total 20.2 ng/mL (30-100)
[2022-10-17 15:29] LABS: Lab Add On Test DONE
== END 2022-05-22 11:06 | disposition home or self-care (01) ==
LOC: LBO 11:05
PROVIDERS: PCP Student in an Organized Health Care Education/Training Program; Visit Provider Student in an Organized Health Care Education/Training Program
DX: D64.9 Anemia, unspecified (principal); A09 Infectious gastroenteritis and colitis, unspecified; N93.9 Abnormal uterine and vaginal bleeding, unspecified; R53.83 Other fatigue; R79.89 Other specified abnormal findings of blood chemistry; R19.7 Diarrhea, unspecified; K90.9 Intestinal malabsorption, unspecified; K83.9 Disease of biliary tract, unspecified; R63.5 Abnormal weight gain; Z11.3 Encounter for screening for infections with a predominantly sexual mode of transmission; Z11.59 Encounter for screening for other viral diseases; Z11.4 Encounter for screening for human immunodeficiency virus [HIV]
CPT/HCPCS: 36415; 80048; 82306; 86709; 86803; 87340; 87389; 82728; 83540; 83550; 83735; 84443; 85025; 86592; 86695; 86696

== ENCOUNTER 2022-12-01 14:26 | Outpatient (REF) | payer MEDICAID, SELFPAY ==
[2022-12-02 13:41] LABS: Chlamydia Result Negative (Negative); GC Result Negative (Negative)
== END 2022-12-01 14:27 | disposition home or self-care (01) ==
LOC: LBN 14:26
PROVIDERS: PCP Student in an Organized Health Care Education/Training Program; Visit Provider Obstetrics & Gynecology
DX: N89.8 Other specified noninflammatory disorders of vagina (principal); Z11.3 Encounter for screening for infections with a predominantly sexual mode of transmission
CPT/HCPCS: 87491; 87591; 87480; 87510; 87660